=== PATIENT | male | born 1990 | race Caucasian/White ===

== ENCOUNTER 2019-09-29 03:23 | Emergency (ER) | payer MEDICARE, MEDICAID ==
[~2019-09-29] VITALS: Ht 190.5 cm; Wt 90.9 kg
[2019-09-29 03:28] VITALS: BP 138/75
[2019-09-29] MEDS ORDERED: IBUP-1986 PO (03:57)
[2019-09-29] MEDS ORDERED: ketorolac trometh inj. 60 MG/2 ML VIAL IM ONE (04:10)
== END 2019-09-29 04:28 | disposition home or self-care (01) ==
LOC: ER 03:24
DX: R07.89 Other chest pain (principal); F12.90 Cannabis use, unspecified, uncomplicated; F15.90 Other stimulant use, unspecified, uncomplicated; Z86.69 Personal history of other diseases of the nervous system and sense organs
CPT/HCPCS: 71101; 96372; 99283; J1885